=== PATIENT | male | born 1965 | race Caucasian/White ===

== ENCOUNTER 2024-03-30 08:54 | Emergency (ER) | payer OTHER, SELFPAY ==
[2024-03-30 08:54] VITALS: BP 128/73; PULSE 61; RESP 15; TEMP 36.4; O2SAT 100; BMI 29.1
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
--- NOTE | 2024-03-30 10:10 | CT_ITS ---
STUDY: CT BRAIN WITHOUT CONTRAST REASON FOR EXAM: Male, 58 years old. Injury/Pain RADIATION DOSAGE (If Supplied By Facility): CTDIvol = ( 44.99 ) mGy, DLP = ( 846.73 ) mGycm TECHNIQUE: Transaxial CT imaging of the brain was performed without administration of intravenous contrast material. Individualized dose optimization techniques were used for this CT. COMPARISON: No relevant priors. FINDINGS: Normal soft tissue structures. Normal calvarium. Normal size ventricles and extra-axial spaces for the patient''s age. Normal white matter tracts of the cerebral hemispheres. Normal basal ganglia and thalami. Normal brainstem. Normal cerebellum. There is no intracranial hemorrhage. There are no findings of an acute ischemic infarction. Minimal mucosal thickening of the medial aspect of the left maxillary sinus. CT/Brain/Head without Contrast IMPRESSION: Normal unenhanced CT scan of the brain. Electronically Signed: Blaise Saba MD at 10:31 EDT ,
--- NOTE | 2024-03-30 10:10 | CT_ITS ---
STUDY: CT CERVICAL SPINE WITHOUT CONTRAST REASON FOR EXAM: Male, 58 years old. Injury/Pain RADIATION DOSAGE (If Supplied By Facility): CTDIvol = ( 27.25 ) mGy, DLP = ( 566.51 ) mGycm TECHNIQUE: High resolution transaxial imaging was performed without contrast material. Sagittal and coronal images were reconstructed. Individualized dose optimization techniques were used for this CT. COMPARISON: None FINDINGS: Normal craniovertebral junction. There are degenerative changes of the anterior atlantoaxial articulation. Normal odontoid process. There is straightening of the normal cervical lordosis. There is evidence of fusion at the C4-C5 level with block vertebrae at the C5-C6 level. Prosthetic disc is seen at the C6-C7 level. C2-3: Normal endplates. Normal disc height and morphology. Normal central canal and intervertebral neuroforamina. C3-4: Marked degree of disc space narrowing. Anterior spondylosis. Moderate degree of bilateral neural foraminal stenosis. C4-5: Status post anterior fusion with prosthetic disc. No significant stenosis seen. C5-6: There is evidence of a fusion at the level of the disc space. No significant stenosis seen. C6-7: Prosthetic disc is present. No significant stenosis seen. C7-T1: Normal endplates. Normal disc height and morphology. Normal central canal and intervertebral neuroforamina. Normal visualized soft tissue structures. CT/Spine Cervical without Contras IMPRESSION: Multilevel fusion as described. Loss of the normal cervical lordosis. Electronically Signed: Blaise Saba MD at 10:31 EDT ,
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
[2024-03-30 10:54] VITALS: BP 124/88; PULSE 76; RESP 16; O2SAT 98
--- NOTE | 2024-03-30 11:34 | ED.RN ---
NO OLD EKGS
[2024-03-30 12:00] VITALS: BP 122/74; PULSE 78; RESP 16; O2SAT 98
[2024-03-30 12:13] VITALS: BP 138/72; PULSE 84; RESP 16; TEMP 36.4; O2SAT 98
== END 2024-03-30 12:14 | disposition home or self-care (01) ==
PROVIDERS: Emergency Provider Emergency Medicine; Visit Provider Emergency Medicine
DX: S09.90XA Unspecified injury of head, initial encounter (principal); S16.1XXA Strain of muscle, fascia and tendon at neck level, initial encounter; S20.20XA Contusion of thorax, unspecified, initial encounter; V49.9XXA Car occupant (driver) (passenger) injured in unspecified traffic accident, initial encounter
CPT/HCPCS: 70450; 71046; 72125; 99282